=== PATIENT | male | born 1965 | race African-American/Black ===

== ENCOUNTER 2025-07-08 01:49 | Emergency (ER) | payer SELFPAY ==
[~2025-07-08] VITALS: Ht 193 cm; Wt 152.4 kg
[2025-07-08 03:03] VITALS: BP 145/72; TEMP 98.5; O2SAT 98
== END 2025-07-08 03:04 | disposition home or self-care (01) ==
LOC: ER 01:51
DX: S80.922D Unspecified superficial injury of left lower leg, subsequent encounter (principal); Z48.00 Encounter for change or removal of nonsurgical wound dressing; Z59.00 Homelessness unspecified; Y92.89 Other specified places as the place of occurrence of the external cause